=== PATIENT | female | born 1960 | race Caucasian/White ===

== ENCOUNTER → 2016-08-25 | Outpatient (CLI) | payer OTHER ==
--- NOTE | 2016-08-25 12:05 | RAD ---
Indication: Six-month follow-up of right breast nodules. Correlation is made with prior exam from 03/03/2016. At the 3:30 location of the right breast, 3 cm from the nipple there is a slightly elongated hypoechoic nodule measuring 9 mm x 3 mm x 5 mm. This is unchanged when compared with prior exam. At the 10:00 location 5 cm from the nipple there is a 7 mm x 4 mm x 5 mm hypoechoic nodule, compared with 5 mm x 5 mm x 5 mm on prior. Slight increase in size may be due to slight differences in measurement technique. No shadowing is identified. No new mass is seen. Impression: Stable hypoechoic nodules at the 3:30 and 10:00 location of the right breast. Follow-up mammogram and right breast ultrasound in 6 months is recommended to confirm stability. BI-RADS Category 3, probably benign.
== END | disposition home or self-care (01) ==
LOC: KCIC US 08:35
PROVIDERS: ATTEND Family Medicine
DX: N63 Unspecified lump in breast (principal)
CPT/HCPCS: 76641

== ENCOUNTER → 2017-02-23 | Outpatient (CLI) | payer OTHER ==
--- NOTE | 2017-02-23 13:51 | KCIC ---
EXAM: Right shoulder, 3 views. HISTORY: Pain. COMPARISON: None. FINDINGS: Internal and external rotation and transscapular views of the right shoulder obtained. There is no fracture, dislocation or subluxation. There is minimal inferior acromial spurring. IMPRESSION: 1. No acute osseous finding. 2. Minimal acromioclavicular osteoarthritis. Electronically signed by: Ely Dinh MD (02/23/2017 1:47 PM) [id number]
== END | disposition home or self-care (01) ==
LOC: KCIC 13:24
PROVIDERS: ATTEND Family Medicine
DX: M19.011 Primary osteoarthritis, right shoulder (principal); M25.811 Other specified joint disorders, right shoulder
CPT/HCPCS: 73030

== ENCOUNTER → 2017-03-01 | Outpatient (CLI) | payer OTHER ==
--- NOTE | 2017-03-01 13:51 | KCIC ---
DATE: 03/01/2017 EXAM: DIGITAL DIAGNOSTIC BILATERAL, BREAST RIGHT HISTORY: Follow-up right breast nodules, routine screening on the left COMPARISON: 02/26/2016 This study was interpreted with the benefit of Computerized Aided Detection (CAD). The breast parenchyma is heterogeneously dense, which could reduce sensitivity of mammography. Breast parenchyma level C. FINDINGS: The fibroglandular tissues are heterogeneous in a somewhat nodular pattern. A small nodule previously seen at the 3-4:00 location in the right breast is less clearly delineated and appears to have decreased in size. A small smooth nodule evident laterally in the right breast on the cc view of the previous study is no longer clearly visible. No new or enlarging breast densities are seen. Minimal benign type calcification is noted. No suspicious microcalcifications have developed. Benign-appearing lymph node type densities are present in the axillary regions. Right breast ultrasound, 03/01/2017: A targeted ultrasound exam was performed in the areas of abnormality identified on the 08/25/2016 study. The small lesion seen at the 3:30 location in the right breast on the previous study is no longer visible. This was probably a complicated cyst which has regressed. There is a 7 x 5 x 5 mm nearly anechoic nodule at the 10:00 location. There is posterior acoustic enhancement. This lesion is unchanged in size since 08/25/2016. This is probably a cyst. IMPRESSION: 1. Regression of the medial right breast nodule compatible with a benign regressing cyst. 2. Stable right lateral breast nodule, probably a complicated cyst. Further sonographic follow-up in 6 months is suggested. 3. No new mammographic abnormality is detected. Follow-up bilateral mammography at one year is suggested. BI-RADS CATEGORY: 3 PROBABLY BENIGN FINDING(S)-SHORT INTERVAL FOLLOW-UP SUGGESTED RECOMMENDED FOLLOW-UP: 6M 6 MONTH FOLLOW-UP PQRS compliance statement: Patient information was entered into a reminder system with a target due date for the next mammogram. Mammography is a sensitive method for finding small breast cancers, but it does not detect them all and is not a substitute for careful clinical examination. A negative mammogram does not negate a clinically suspicious finding and should not result in delay in biopsying a clinically suspicious abnormality. "Our facility is accredited by the [employer] Mammography [employer]."
== END | disposition home or self-care (01) ==
LOC: KCIC MAMMO 12:09
PROVIDERS: ATTEND Family Medicine
DX: N63.10 Unspecified lump in the right breast, unspecified quadrant (principal)
CPT/HCPCS: 76641; G0204; 77066

== ENCOUNTER 2017-09-17 18:49 | Emergency (ER) | payer OTHER ==
[2017-09-17] MEDS: LIDOCAINE WITH 8.4% SOD BICARB 3 ML DISP.SYRIN. INJ (19:17)
[2017-09-17] MEDS: DIPHTH,PERTUSS(ACELL),TET TOX 0.5 ML DISP.SYRIN. VAX IM (19:19)
== END 2017-09-17 19:49 | disposition home or self-care (01) ==
LOC: ER 19:49
DX: S61.412A Laceration without foreign body of left hand, initial encounter (principal); Z88.0 Allergy status to penicillin; Z88.2 Allergy status to sulfonamides; W27.4XXA Contact with kitchen utensil, initial encounter; Y93.89 Activity, other specified; Y99.8 Other external cause status; Y92.89 Other specified places as the place of occurrence of the external cause
CPT/HCPCS: 90471; 90715; 99283-25

== ENCOUNTER → 2018-06-15 | Outpatient (CLI) | payer OTHER ==
[2017-09-17 18:49] VITALS: BP 197/85
--- NOTE | 2018-06-15 12:13 | KCIC ---
Bilateral diagnostic digital mammograms: Reason for examination: Follow-up nodules. Comparison is made to previous study dated 03/01/2017. Interpretation was made with the benefit of CAD. The skin and nipples show no abnormalities. No abnormal axillary lymph nodes are seen. The breast parenchyma is heterogeneously dense. (Breast density: Category C.) There is still a small nodular parenchymal density at the 10:00 B position of the right breast. There also is a small parenchymal density in the medial right breast on cc view which is unchanged. There are no new dominant masses, suspicious calcifications or architectural distortion. Impression: Continued presence of small nodular densities medially and laterally in the right breast. Ultrasound to follow. Your patient's mammogram demonstrates that she has dense breast tissue (breast density category C or D), which could hide abnormalities, and if she has other risk factors for breast cancer that have been identified, she might benefit from supplemental screening tests that may be suggested by you as her ordering physician. Dense breast tissue, in and of itself, is a relatively common condition. Therefore, this information is not provided to cause undue concern, but rather to raise your awareness and to promote discussion with your patient regarding the presence of other risk factors, in addition to dense breast tissue. Your patient's mammography results will be sent to her. BI-RAD Category 0: Incomplete. Needs additional imaging evaluation. Right breast ultrasound: Comparison is made to previous study dated 03/01/2017. Right breast ultrasound examination was performed in the areas of mammographic concern and at the right axilla. In the 10:00 position 5 cm from the nipple, there continues to be a small 5.9 mm cyst which shows no significant change. No other cystic or solid lesions are seen in the breast. No abnormal appearing lymph nodes are seen in the axilla. IMPRESSION: Small cyst at the 10:00 position of the right breast without significant change. No abnormality seen medially in the right breast. Recommend routine mammographic follow-up. BI-RADS Category 2: Benign. "Our facility is accredited by the [employer] Mammography [employer]." This patient's information has been entered into a reminder system for the patient to be notified with the results of her examination and a target date for the next mammogram. Electronically signed by: Darline Damon MD (06/15/2018 12:10 PM) [id number]
== END | disposition home or self-care (01) ==
LOC: KCIC MAMMO 09:13
PROVIDERS: ATTEND Family Medicine
DX: N60.01 Solitary cyst of right breast (principal)
CPT/HCPCS: 76641; 77066

== ENCOUNTER → 2018-08-14 | Outpatient (CLI) | payer OTHER ==
[2017-09-17 18:49] VITALS: BP 197/85
--- NOTE | 2018-08-14 14:53 | KCIC ---
EXAM: Chest, 2 views. HISTORY: Productive cough. Rib pain. COMPARISON: None. FINDINGS: 2 views the chest are obtained. There is no infiltrate, pleural effusion or pneumothorax. There are slightly slightly prominent central pulmonary vascular shadows. The heart is normal in size. IMPRESSION: No acute pulmonary finding. Electronically signed by: Ely Dinh MD (08/14/2018 2:46 PM) [place] [id number]
== END | disposition home or self-care (01) ==
LOC: KCIC 13:43
PROVIDERS: ATTEND Family Medicine
DX: R05 Cough (principal); R07.81 Pleurodynia
CPT/HCPCS: 71046

== ENCOUNTER → 2020-07-30 | Outpatient (CLI) | payer OTHER ==
[2017-09-17 18:49] VITALS: BP 197/85
--- NOTE | 2020-07-31 19:31 | RAD ---
DATE: 07/30/2020 EXAM: DIGITAL SCREEN BILAT W/CAD HISTORY: Screening COMPARISON: 06/15/2018, 03/01/2017, 02/26/2016 This study was interpreted with the benefit of Computerized Aided Detection (CAD). Breast Density: HETERO The breast parenchyma is heterogenously dense, which could reduce sensitivity of mammography. Breast parenchyma level C. FINDINGS: A circumscribed nodule in the medial posterior right breast is stable from 2016. No suspicious mass, suspicious calcification, or architectural distortion in either breast. IMPRESSION: No evidence of malignancy. BI-RADS CATEGORY: 1 NEGATIVE RECOMMENDED FOLLOW-UP: 12M 12 MONTH FOLLOW-UP PQRS compliance statement: Patient information was entered into a reminder system with a target due date for the next mammogram. Mammography is a sensitive method for finding small breast cancers, but it does not detect them all and is not a substitute for careful clinical examination. A negative mammogram does not negate a clinically suspicious finding and should not result in delay in biopsying a clinically suspicious abnormality. "Our facility is accredited by the [employer] Mammography [employer]."
== END ==
LOC: MAMMO 13:08
PROVIDERS: ATTEND Family Medicine
DX: Z12.31 Encounter for screening mammogram for malignant neoplasm of breast (principal)
CPT/HCPCS: 77067